=== PATIENT | male | born 1990 | race African-American/Black ===

== ENCOUNTER 2020-02-24 16:51 | Emergency (ER) | payer OTHER, SELFPAY ==
[2020-02-24 17:03] VITALS: BP 140/86; PULSE 76; RESP 20; TEMP 36.5; O2SAT 100
--- NOTE | 2020-02-24 17:03 | ED.SKABFB ---
HPI - Skin/Abscess/Foreign Bdy General Chief complaint: Skin/Abscess/Foreign Body Stated complaint: rash Time Seen by Provider: 02/24/20 17:03 Source: patient and RN notes reviewed Mode of arrival: ambulatory Limitations: no limitations History of Present Illness HPI narrative: 29 year old male presents to express care with complaints of red slightly raised rash diffusely on body since yesterday that is itchy. Patient states that he is on hid day 9 of Clindamycin for a skin infection on his left knee which has improved. He denies any other new medications, foods, lotions, laundry detergent or bath soaps. Patient states that he has not tried any OTC anti itch medications or taken any benadryl. Patient denies any difficulty with his breathing or any difficulty swallowing. MD complaint: rash Onset (ago): day(s) (2) Tetanus up to date: yes Location: generalized Severity: moderate Quality: pruritic Exacerbating factors: movement Context: recent antibiotic Associated symptoms: denies other symptoms Treatments prior to arrival: none Related Data Allergies Allergy/AdvReac Type Severity Reaction Status Date / Time No Known Allergies Allergy Verified 02/24/20 17:06 Review of Systems Review of Systems: Narrative: CONSTITUTIONAL: Denies fever, chills, or sweats. EYES: Denies visual changes, redness, or discharge. ENT: Denies rhinorrhea, congestion, sore throat, or otalgia. CARDIOVASCULAR: Denies chest pain, palpitations, or edema. RESPIRATORY: Denies cough or dyspnea. GASTROINTESTINAL: Denies abdominal pain, nausea, vomiting, or diarrhea. GENITOURINARY: Denies dysuria or hematuria. SKIN: Positive for red diffuse raised rash with itching. MUSCULOSKELETAL: Denies back pain, joint pain, or myalgia. NEUROLOGIC: Denies headache, numbness, or weakness. PSYCHIATRIC: Denies anxiety or depression. All systems reviewed & are unremarkable except as noted in HPI and below PMFSH Past Medical History Medical History (Updated 02/24/20 @ 17:57 by Jennifer Alba NP) No significant medical problems Surgical History Surgical History (Updated 02/24/20 @ 17:50 by Jennifer Alba NP) [place] teeth extracted Family History Family History (Updated 02/24/20 @ 17:58 by Jennifer Alba NP) Grandparent Hypertension Social History Social History (Updated 02/24/20 @ 17:57 by Jennifer Alba NP) Smoking status: Never smoker Alcohol intake: current Substance use: never Living arrangements: with family Gender identity (if verbalized by the patient): Male Comments At time of signature, agree with nursing past medical, surgical, social and family history. There is no relevant family history pertinent to the presenting complaint Exam Narrative: Exam Narrative: GENERAL: Well-appearing, well-nourished, and in no acute distress. HEAD: Normocephalic, atraumatic. EYES: PERRLA and EOMI. ENT: Nares clear, no rhinorrhea or epistaxis. Mucous membranes moist. NECK: Supple.no lymphadenopathy CHEST: Clear to auscultation. No respiratory distress.SAO2 100% on room air HEART: Regular rate and rhythm. No murmur heard. Normal peripheral pulses. ABDOMEN: Soft, nontender, nondistended, normal active bowel sounds. EXTREMITIES: Normal range of motion. No edema. SKIN: Warm, dry, diffuse red raised pruritic rash noted. Patient has noted rash on arms, legs, back and stomach none on groin or buttock, rash is itchy. NEURO: No focal deficits. Alert and oriented x3. MDM - Skin/Abscess/Foreign Bdy Differential Diagnosis Differential diagnosis: Likely abscess of skin or subcutaneous tissue, urticaria, allergic reaction to drug, eczema and contact dermatitis Medical Records Attestation: I reviewed the patient's medical records. Critical Care Time Critical Care Time Critical Care Time: No Discharge Plan Discharge Clinical Impression: Allergic reaction to drug Qualifiers: Encounter type: initial encounter Qualified Code(s): T78.40XA - Allergy, uns
== END 2020-02-24 17:21 | disposition home or self-care (01) ==
PROVIDERS: Emergency Provider Registered Nurse
DX: L27.0 Generalized skin eruption due to drugs and medicaments taken internally (principal); T36.8X5A Adverse effect of other systemic antibiotics, initial encounter
CPT/HCPCS: 99203; G0463